=== PATIENT | male | born 1965 ===

== ENCOUNTER → 2022-11-15 12:48 | Outpatient (BNVA) | payer OTHER, SELFPAY | PROVIDERS: PCP Internal Medicine; Visit Provider Registered Nurse Emergency ==

== ENCOUNTER 2022-12-03 06:04 | Outpatient (REF) | payer OTHER, SELFPAY ==
--- NOTE | ~2022-12-03 | FL_ITS ---
EXAMINATION: XR FLUOROSCOPY WITH IMAGES CLINICAL INFORMATION: Sacrococcygeal disorders, not elsewhere classified COMPARISON: None available. TECHNIQUE: Fluoroscopy Supervised By: Dr. Arreola. Fluoroscopy Time: 0.4 minutes. Cumulative Dose: 8.01 mGy. DAP: Gycm2. Images: 2. FINDINGS: Images demonstrate needle placement and contrast injection of the bilateral sacroiliac joints. FL/FL guidance in treatment room IMPRESSION: Fluoroscopy guidance for sacroiliac joint injections
== END 2022-12-03 06:05 | disposition home or self-care (01) ==
LOC: CF 06:04
PROVIDERS: Visit Provider Anesthesiology
DX: M53.3 Sacrococcygeal disorders, not elsewhere classified (principal); M54.10 Radiculopathy, site unspecified; M47.816 Spondylosis without myelopathy or radiculopathy, lumbar region; M96.1 Postlaminectomy syndrome, not elsewhere classified; M54.50 Low back pain, unspecified
CPT/HCPCS: 27096; J3301

== ENCOUNTER 2023-01-07 10:24 | Outpatient (AMB) | payer OTHER, SELFPAY ==
[2023-01-07 10:35] VITALS: BP 134/64; PULSE 86; RESP 18; O2SAT 98; BMI 31.9
--- NOTE | 2023-01-07 10:35 | MHC.OFFVIS ---
Intake Vital Signs 01/07/23 10:35 Height 5 ft 9 in Weight 216 lb 6 oz BMI 31.9 BP 134/64 Blood Pressure Location Lt brachial Position Sitting Respiration 18 Pulse 86 Pulse Source Pulse Oximeter Pulse Oximetry (%) 98 Oxygen Delivery Method Room Air Intake Visit Reasons: BILAT SIJ STEROID INJ 12/03/22 Allergies diclofenac Adverse Reaction (Intermediate, Verified 01/07/23 10:36) Rash Penicillins Adverse Reaction (Intermediate, Verified 01/07/23 10:36) rash almonds Adverse Reaction (Severe, Uncoded 11/15/22 12:56) Anaphylaxis HPI HPI Comments History of Present Illness Details Hussein presents back to the office today for follow up s/p bilateral therapeutic SI joint injections on 12/03/2022. Patient reports 60% sustained pain improvement after the procedure with most significant pain relief noticed on day 3. He endorses improvement in mobility, activities of daily living and overall functioning. Has been able to bend without worrying about pain in his lower back and he has been helping his son with home projects. Patient denies any untoward effects of the procedure, he would like to repeat this in the future. Prior: Hussein is a pleasant 57-year-old male presents the office for a new patient visit on referral from his primary care doctor for evaluation and management of his chronic lower back pain. Patient reports he has been experiencing pain in his lower back since approximately 2017. The pain today as a 6/10 put at its worst will be a 10/10. He describes his pain as aching and stabbing with radiation into left thigh. He does report shooting pain lateral left leg below level of manzanares if he takes long car rides without stopping to stretch. The pain is worse with movement, long rides in the car, lifting heavy objects and climbing stairs. Pain is improved with heat, cold, topical meds and oral meds. Patient has tried NSAIDs, physical therapy, home exercise program, steroid injections and opiate pain medication. The patient reports he has completed 8 weeks of physical therapy that finished in July 2022, he continues to do home exercise program as recommended on discharge from physical therapy. Patient had a recent MRI, was told by Neurosurgery that he is not a candidate for surgical intervention at this time. Patient reports history of #4 steroid injections in the past, the 1st was very helpful but each one after were less beneficial. He states that he did not receive any benefit from the 4th one. Patient also reports that he suffers from muscle spasm across his lower back that he is prescribed muscle relaxers to take as needed. He did not tolerate previous muscle relaxers and most recently was prescribed baclofen which he has yet to try. He states if he lifts anything heavy the muscle spasms will become debilitating and can last for up to 3 days significantly limiting his ability to perform activities of daily living. Patient reports his lower back pain is also impacting his ability to sleep normally had impeding his ability to function normally. In terms of muscle damage patient's condition is described as stabbing, tugging, pulling, wrenching, dull, sore, aching, heavy, spreading, radiating, piercing, tight, squeezing and tearing. MRI was reviewed with the patient today, results as below. Patient denies implantable devices, pacemaker or defibrillator. Patient's past medical history significant for high blood pressure, hyperlipidemia, gout and a ACDF. The patient denies tobacco or recreational drug use. Patient admits to social alcohol use, beer. Review of Systems Const All systems reviewed & are unremarkable except as noted in HPI and below Physical Exam Vital Signs: Last Vital Signs Pulse 86 01/07/23 10:35 Resp 18 01/07/23 10:35 BP 134/64 01/07/23 10:35 Pulse Ox 98 01/07/23 10:35 Oxygen Delivery Method Room Air 01/07/23 10:35 BMI result Body Mass Index 31.9 General: awake, alert, oriented. Answers questions appropriately. Fully engaged in examination. Skin: warm, dry, intact without visible rashes or lesions. HEENT: Normocephalic. Conjuntivae clear without exudate. Sclera non-icteric. Hearing intact. Cardiac: External chest normal in appearance. Respiratory: No signs of trauma. No signs of respiratory distress. No cough, audible wheezing or stridor. Abdomen: without gross distension. MS: No obvious swelling or deformities. Able to transition from sit to stand unassisted. Ambulates with bilaterally normal heel strike and toe off Neurological: Oriented to person, place, time and situation. Thought process intact. No gait abnormalities appreciated. Psychiatric: Appropriate mood and affect. Good judgment and insight. Assessment & Plan Assessment & Plan (1) Radiculopathy: Code(s): M54.10 - Radiculopathy, site unspecified (2) Lumbar spondylosis: Code(s): M47.816 - Spondylosis without myelopathy or radiculopathy, lumbar region (3) Post laminectomy syndrome: Code(s): M96.1 - Postlaminectomy syndrome, not elsewhere classified (4) Myofascial low back pain: Code(s): M54.50 - Low back pain, unspecified Plan Hussein is a pleasant 57-year-old male who presented back to the office today for follow up s/p bilateral therapeutic SI joint injections. Patient with 60% pain relief with improvement in mobility and functioning. Patient will continue HEP and follow up in the office as needed for repeat Therapeutic SI joint injections. All questions and concerns have been answered and patient agrees with the plan. Follow up as needed. Coding Level of Care Code Est Pt Level 3 (35317) Diagnoses Radiculopathy M54.10 Lumbar spondylosis M47.816 Post laminectomy syndrome M96.1 Myofascial low back pain M54.50
== END 2023-01-07 10:44 | disposition home or self-care (01) ==
PROVIDERS: PCP Internal Medicine; Visit Provider Registered Nurse Emergency
DX: M54.10 Radiculopathy, site unspecified (principal); M47.816 Spondylosis without myelopathy or radiculopathy, lumbar region; M96.1 Postlaminectomy syndrome, not elsewhere classified; M54.50 Low back pain, unspecified
CPT/HCPCS: 99213

== ENCOUNTER → 2023-01-07 10:24 | Outpatient (BNVA) | payer OTHER, SELFPAY | PROVIDERS: PCP Internal Medicine; Visit Provider Registered Nurse Emergency ==

== ENCOUNTER 2023-03-11 06:00 | Outpatient (REF) | payer OTHER, SELFPAY ==
--- NOTE | ~2023-03-11 | FL_ITS ---
EXAMINATION: XR FLUOROSCOPY WITH IMAGES CLINICAL INFORMATION: Sacrococcygeal disorders, not elsewhere classified. Bilateral sacroiliac joints. COMPARISON: None available. TECHNIQUE: Fluoroscopy Supervised By: Dr. Connor Arreola. Fluoroscopy Time: 0.2 minutes. Cumulative Dose: 2.34 mGy. DAP: 0.0407 Gycm2. Images: 2. FINDINGS: Images demonstrate needle placement and contrast injection over the bilateral sacroiliac joints FL/FL guidance in treatment room IMPRESSION: Fluoroscopy guidance for pain management procedure
== END 2023-03-11 06:01 | disposition home or self-care (01) ==
LOC: CF 06:00
PROVIDERS: Visit Provider Anesthesiology
DX: M53.3 Sacrococcygeal disorders, not elsewhere classified (principal); M54.10 Radiculopathy, site unspecified; M47.816 Spondylosis without myelopathy or radiculopathy, lumbar region; M54.50 Low back pain, unspecified
CPT/HCPCS: 27096; J3301

== ENCOUNTER 2023-03-11 08:49 | Outpatient (AMB) | payer OTHER, SELFPAY ==
--- NOTE | 2023-03-11 09:01 | A.OFFVIS_ITS ---
Intake Vital Signs 03/11/23 09:02 03/11/23 10:06 Height 5 ft 9 in 5 ft 9 in Weight 216 lb 216 lb BMI 31.9 31.9 BP 128/64 138/72 Blood Pressure Location Lt brachial Lt brachial Position Sitting Sitting Respiration 18 18 Pulse 85 86 Pulse Source Pulse Oximeter Pulse Oximeter Pulse Oximetry (%) 98 99 Oxygen Delivery Method Room Air Room Air Comment pre-op post-op Intake Visit Reasons: BILAT SIJ STEROID INJ/*ATIVAN/LOCAL Allergies diclofenac Adverse Reaction (Intermediate, Verified 03/11/23 10:07) Rash Penicillins Adverse Reaction (Intermediate, Verified 03/11/23 10:07) rash almonds Adverse Reaction (Severe, Uncoded 11/15/22 12:56) Anaphylaxis Physical Exam Vital Signs: Last Vital Signs Pulse 86 03/11/23 10:06 Resp 18 03/11/23 10:06 BP 138/72 03/11/23 10:06 Pulse Ox 99 03/11/23 10:06 Oxygen Delivery Method Room Air 03/11/23 10:06 BMI result Body Mass Index 31.9 Assessment & Plan Assessment & Plan (1) Radiculopathy: Code(s): M54.10 - Radiculopathy, site unspecified (2) Lumbar spondylosis: Code(s): M47.816 - Spondylosis without myelopathy or radiculopathy, lumbar region (3) Post laminectomy syndrome: Code(s): M96.1 - Postlaminectomy syndrome, not elsewhere classified (4) Myofascial low back pain: Code(s): M54.50 - Low back pain, unspecified (5) Sacroiliac joint dysfunction of both sides: Code(s): M53.3 - Sacrococcygeal disorders, not elsewhere classified Plan: Bilateral therapeutic sacroiliac joint injection Informed consent was explained thoroughly to the patient. All questions about benefits and risks for the procedure were answered. Patient came to the operating room and was positioned prone on the operating table with the pillow under the pelvis.[employer] monit ors were applied and patient was deeply sedated. The lower back and buttocks of the patient were prepped with ChloraPrep prepped and draped with sterile utility towels. Sterilely draped C-arm was brought over the operating field and sq picture of patient's pelvis was demonstrated on the screen. For the both joint tilting C-arm contralateral to the site of the joint the most posterior portion of the joints was superimposed with anterior silhouette of the joint. Skin was injected in the projection of the joint slightly medial to the location of the joint with 25 gauge 1/2 inch needle using local lidocaine 2% .After that 22 gauge 3 and 1/2 inch needle was driven to the right joint in tunnel vision fashion. When needle entered the joint capsule injection of the contrast was performed demonstrating intra-articular and minimally periarticular spread of the contrast. After that 4 cc. of ropivacaine 0.5% mixed with kenalog 20 mg was injected into the each joint. The needles were removed and bandaids were applied. Cesar Savage is a pleasant 57-year-old male who presents to the office today for evaluation and management of his chronic lower back pain. Patient has been suffering with this pain for approximately 5 years and has exhausted conservative treatment. Patient's history and physical exam today most consistent with sacroiliac joint dysfunction. Patient with significant tenderness to palpation over PSIS that he reports is consistent with his typical pain, provocative testing also positive for sacroiliac joint dysfunction. Will schedule patient for fluoroscopy guided bilateral therapeutic sacroiliac joint injections with local anesthetic. Advised patient if he receives adequate pain relief and this is something that could be repeated. Also discussed with patient the option for SI joint fusion later if necessary. If patient does not receive substantial pain relief with SI joint injections will plan for L3, L4, MB L5 diagnostic medial branch blocks. Discussed options for treatment including diagnostic interventional testing, epidural steroid injections, peripheral nerve stimulation with Sprint, RFA and more permanent neuromodulation. Informational pamphlets provided. Patient's most recent epidural steroid injections were unsuccessful at providing significant pain relief, consider Sprint PNS vs RFA. Prescription for Zynex Tens unit provided. Patient provided information for Zynex. Patient will continue HEP. All questions and concerns have been answered and patient agrees with the plan. Follow up after injections and sooner if needed. Orders: Orders FL guidance in treatment room Today M53.3 - Sacrococcygeal disorders, not elsewhere classified Coding Level of Care Code Procedure Only Diagnoses Radiculopathy M54.10 Lumbar spondylosis M47.816 Post laminectomy syndrome M96.1 Myofascial low back pain M54.50 Sacroiliac joint dysfunction of both sides M53.3
[2023-03-11 09:02] VITALS: BP 128/64; PULSE 85; RESP 18; O2SAT 98; BMI 31.9
[2023-03-11 10:06] VITALS: BP 138/72; PULSE 86; RESP 18; O2SAT 99; BMI 31.9
== END 2023-03-11 09:58 | disposition home or self-care (01) ==
LOC: HO.PMCPRC 08:49
PROVIDERS: PCP Internal Medicine; Visit Provider Anesthesiology
DX: M53.3 Sacrococcygeal disorders, not elsewhere classified (principal)
CPT/HCPCS: 27096

== ENCOUNTER 2023-04-17 13:55 | Outpatient (AMB) | payer OTHER, SELFPAY ==
[2023-04-17 14:06] VITALS: BP 144/77; PULSE 90; RESP 16; O2SAT 98; BMI 32.2
--- NOTE | 2023-04-17 14:06 | A.OFFVIS_ITS ---
Intake Vital Signs 3 04/17/23 14:06 Height 5 ft 9 in Weight 218 lb BMI 32.2 BP 144/77 H Blood Pressure Location Lt brachial Position Sitting Respiration 16 Pulse 90 Pulse Source Pulse Oximeter Pulse Oximetry (%) 98 Oxygen Delivery Method Room Air Intake Visit Reasons: BILAT SIJ STEROID INJ/ 03/11/23 / CONFIRMED Allergies diclofenac Adverse Reaction (Intermediate, Verified 04/17/23 14:07) Rash Penicillins Adverse Reaction (Intermediate, Verified 04/17/23 14:07) rash almonds Adverse Reaction (Severe, Uncoded 11/15/22 12:56) Anaphylaxis HPI HPI Comments 2 History of Present Illness0 Details Hussein presents back to the office today for follow up s/p bilateral therapeutic SI joint injections on 03/11/23. Patient reports 80% sustained pain improvement after the procedure. He endorses improvement in mobility, activities of daily living and overall functioning. Since the procedure patient flew with his son to [place] and was able to walk around and do a lot of sightseeing. He only felt a slight pain increase to midline lumbar area but pain in SIJ did not return. He still reports mild midline lumbar pain, he received injections in the past with decrease effectiveness over time. He completed PT months ago, completed 8 weeks and continues with HEP. Prior: Hussein is a pleasant 57-year-old male presents the office for a new patient visit on referral from his primary care doctor for evaluation and management of his chronic lower back pain. Patient reports he has been experiencing pain in his lower back since approximately 2017. The pain today as a 6/10 put at its worst will be a 10/10. He describes his pain as aching and stabbing with radiation into left thigh. He does report shooting pain lateral left leg below level of manzanares if he takes long car rides without stopping to stretch. The pain is worse with movement, long rides in the car, lifting heavy objects and climbing stairs. Pain is improved with heat, cold, topical meds and oral meds. Patient has tried NSAIDs, physical therapy, home exercise program, steroid injections and opiate pain medication. The patient reports he has completed 8 weeks of physical therapy that finished in July 2022, he continues to do home exercise program as recommended on discharge from physical therapy. Patient had a recent MRI, was told by Neurosurgery that he is not a candidate for surgical intervention at this time. Patient reports history of #4 steroid injections in the past, the 1st was very helpful but each one after were less beneficial. He states that he did not receive any benefit from the 4th one. Patient also reports that he suffers from muscle spasm across his lower back that he is prescribed muscle relaxers to take as needed. He did not tolerate previous muscle relaxers and most recently was prescribed baclofen which he has yet to try. He states if he lifts anything heavy the muscle spasms will become debilitating and can last for up to 3 days significantly limiting his ability to perform activities of daily living. Patient reports his lower back pain is also impacting his ability to sleep normally had impeding his ability to function normally. In terms of muscle damage patient's condition is described as stabbing, tugging, pulling, wrenching, dull, sore, aching, heavy, spreading, radiating, piercing, tight, squeezing and tearing. MRI was reviewed with the patient today, results as below. Patient denies implantable devices, pacemaker or defibrillator. Patient's past medical history significant for high blood pressure, hyperlipidemia, gout and a ACDF. The patient denies tobacco or recreational drug use. Patient admits to social alcohol use, beer. Review of Systems Const All systems reviewed & are unremarkable except as noted in HPI and below Physical Exam Vital Signs: Last Vital Signs Pulse 90 04/17/23 14:06 Resp 16 04/17/23 14:06 BP 144/77 H 04/17/23 14:06 Pulse Ox 98 04/17/23 14:06 Oxygen Delivery Method Room Air 04/17/23 14:06 BMI result Body Mass Index 32.2 General: awake, alert, oriented. Answers questions appropriately. Fully engaged in examination. Skin: warm, dry, intact without visible rashes or lesions. HEENT: Normocephalic. Conjuntivae clear without exudate. Sclera non-icteric. Hearing intact. Cardiac: External chest normal in appearance. Respiratory: No signs of trauma. No signs of respiratory distress. No cough, audible wheezing or stridor. Abdomen: without gross distension. MS: No obvious swelling or deformities. Able to transition from sit to stand unassisted. Ambulates with bilaterally normal heel strike and toe off Neurological: Oriented to person, place, time and situation. Thought process intact. No gait abnormalities appreciated. Psychiatric: Appropriate mood and affect. Good judgment and insight. Results Reviewed Results Reviewed: Assessment & Plan Assessment & Plan (1) Radiculopathy: Code(s): M54.10 - Radiculopathy, site unspecified (2) Lumbar spondylosis: Code(s): M47.816 - Spondylosis without myelopathy or radiculopathy, lumbar region (3) Post laminectomy syndrome: Code(s): M96.1 - Postlaminectomy syndrome, not elsewhere classified (4) Myofascial low back pain: Code(s): M54.50 - Low back pain, unspecified (5) Sacroiliac joint dysfunction of both sides: Code(s): M53.3 - Sacrococcygeal disorders, not elsewhere classified Plan Hussein is a pleasant 57-year-old male who presented back to the office today for follow up s/p bilateral therapeutic SI joint injections. Patient with 80% pain relief with improvement in mobility and functioning. Patient will continue HEP and follow up in the office as needed for repeat Therapeutic SI joint injections vs bilateral SIJ fusion. Discussed treatment for lumbar spondylosis. Pamphlets for Sprint PNS given to patient for review. Patient will call the office when he would like to schedule fluoroscopy guided diagnostic L3 L4 DR L5 MBBs with local anesthetic, if he receives improvement in pain, function and mobility will plan for L3 MB Sprint PNS. All questions and concerns have been answered and patient agrees with the plan. Follow up as needed. Coding Level of Care Code Est Pt Level 3 (78977) Diagnoses Radiculopathy M54.10 Lumbar spondylosis M47.816 Post laminectomy syndrome M96.1 Myofascial low back pain M54.50 Sacroiliac joint dysfunction of both sides M53.3
== END 2023-04-17 14:28 | disposition home or self-care (01) ==
PROVIDERS: PCP Internal Medicine; Visit Provider Registered Nurse Emergency
DX: M54.10 Radiculopathy, site unspecified (principal); M47.816 Spondylosis without myelopathy or radiculopathy, lumbar region; M96.1 Postlaminectomy syndrome, not elsewhere classified; M54.50 Low back pain, unspecified; M53.3 Sacrococcygeal disorders, not elsewhere classified
CPT/HCPCS: 99213

== ENCOUNTER → 2023-04-17 13:55 | Outpatient (BNVA) | payer OTHER, SELFPAY | PROVIDERS: PCP Internal Medicine; Visit Provider Registered Nurse Emergency ==

== ENCOUNTER 2024-03-25 09:00 | Outpatient (AMB) | payer OTHER, SELFPAY ==
[2024-03-25 09:06] VITALS: BP 148/67; PULSE 78; O2SAT 99; BMI 30.6
--- NOTE | 2024-03-25 09:06 | MHC.OFFVIS ---
Vital Signs 03/25/24 09:06 Height 5 ft 9 in Weight 207 lb BMI 30.6 BP 148/67 H Blood Pressure Location Rt brachial Position Sitting Pulse 78 Pulse Source Pulse Oximeter Pulse Oximetry (%) 99 Oxygen Delivery Method Room Air Intake Visit Reasons: Follow Up/Discuss Injections Allergies baclofen Allergy (Unknown, Verified 03/25/24 09:09) Unknown diclofenac Adverse Reaction (Intermediate, Verified 03/25/24 09:07) Rash Penicillins Adverse Reaction (Intermediate, Verified 03/25/24 09:07) rash almonds Adverse Reaction (Severe, Uncoded 03/25/24 09:07) Anaphylaxis Medication List - Last Reconciled 03/25/24 by Janette Leavitt allopurinol 300 mg PO DAILY amlodipine 5 mg PO DAILY atorvastatin 40 mg PO DAILY lisinopril 20 mg PO DAILY lorazepam 0.5 mg PO DAILY PRN sildenafil 100 mg PO DAILY PRN HPI Comments Details: Patient presents back to the office today for follow up lower back pain reports pain relief after bilateral SIJ injections performed 02/2023 Pain returned 2 weeks ago, he would like repeat injections pain worse with sitting and climbing stairs Pain today rated as 7/10 Has been taking tylenol and motrin with minimal improvement. Using heat with temporary relief. Prior: Hussein presents back to the office today for follow up s/p bilateral therapeutic SI joint injections on 03/11/23. Patient reports 80% sustained pain improvement after the procedure. He endorses improvement in mobility, activities of daily living and overall functioning. Since the procedure patient flew with his son to [place] and was able to walk around and do a lot of sightseeing. He only felt a slight pain increase to midline lumbar area but pain in SIJ did not return. He still reports mild midline lumbar pain, he received injections in the past with decrease effectiveness over time. He completed PT months ago, completed 8 weeks and continues with HEP. Prior: Hussein is a pleasant 57-year-old male presents the office for a new patient visit on referral from his primary care doctor for evaluation and management of his chronic lower back pain. Patient reports he has been experiencing pain in his lower back since approximately 2018. The pain today as a 6/10 put at its worst will be a 10/10. He describes his pain as aching and stabbing with radiation into left thigh. He does report shooting pain lateral left leg below level of manzanares if he takes long car rides without stopping to stretch. The pain is worse with movement, long rides in the car, lifting heavy objects and climbing stairs. Pain is improved with heat, cold, topical meds and oral meds. Patient has tried NSAIDs, physical therapy, home exercise program, steroid injections and opiate pain medication. The patient reports he has completed 8 weeks of physical therapy that finished in July 2022, he continues to do home exercise program as recommended on discharge from physical therapy. Patient had a recent MRI, was told by Neurosurgery that he is not a candidate for surgical intervention at this time. Patient reports history of #4 steroid injections in the past, the 1st was very helpful but each one after were less beneficial. He states that he did not receive any benefit from the 4th one. Patient also reports that he suffers from muscle spasm across his lower back that he is prescribed muscle relaxers to take as needed. He did not tolerate previous muscle relaxers and most recently was prescribed baclofen which he has yet to try. He states if he lifts anything heavy the muscle spasms will become debilitating and can last for up to 3 days significantly limiting his ability to perform activities of daily living. Patient reports his lower back pain is also impacting his ability to sleep normally had impeding his ability to function normally. In terms of muscle damage patient's condition is described as stabbing, tugging, pulling, wrenching, dull, sore, aching, heavy, spreading, radiating, piercing, tight, squeezing and tearing. MRI was reviewed with the patient today, results as below. Patient denies implantable devices, pacemaker or defibrillator. Patient's past medical history significant for high blood pressure, hyperlipidemia, gout and a ACDF. The patient denies tobacco or recreational drug use. Patient admits to social alcohol use, beer. Review of Systems Const All systems reviewed & are unremarkable except as noted in HPI and below Physical Exam Vital Signs: Last Vital Signs Pulse 78 03/25/24 09:06 BP 148/67 H 03/25/24 09:06 Pulse Ox 99 03/25/24 09:06 Oxygen Delivery Method Room Air 03/25/24 09:06 BMI result Body Mass Index 30.6 General: awake, alert, oriented. Answers questions appropriately. Fully engaged in examination. Skin: warm, dry, intact HEENT: Normocephalic. Hearing intact. Cardiac: External chest normal in appearance. Respiratory: No cough, audible wheezing or stridor. Abdomen: without gross distension. MS: No obvious swelling or deformities. Able to stand on bilateral tiptoes and bilateral heels.? Able to transition from sit to stand unassisted. Ambulates with bilaterally normal heel strike and toe off Strength: 5/5 BLE Tender to palpation over bilateral PSIS SI compression positive bilaterally Gaenslen test is positive bilaterally Thigh thrust positive bilaterally SLR is negative bilaterally. Neurological: Oriented to person, place, time and situation. Thought process intact. No gait abnormalities appreciated. Psychiatric: Appropriate mood and affect. Good judgment and insight. Results Reviewed Results Reviewed: Assessment & Plan Assessment & Plan (1) Radiculopathy: Code(s): M54.10 - Radiculopathy, site unspecified Category: Medical (2) Lumbar spondylosis: Code(s): M47.816 - Spondylosis without myelopathy or radiculopathy, lumbar region Category: Medical (3) Post laminectomy syndrome: Code(s): M96.1 - Postlaminectomy syndrome, not elsewhere classified Category: Medical (4) Myofascial low back pain: Code(s): M54.50 - Low back pain, unspecified Category: Medical (5) Sacroiliac joint dysfunction of both sides: Code(s): M53.3 - Sacrococcygeal disorders, not elsewhere classified Category: Medical Plan Hussein presented back to the office today for follow up bilateral SIJ dysfunction. Reports one year of pain relief after bilateral therapeutic SIJ injections. Would like to repeat. Will schedule for fluoroscopy guided bilateral therapeutic sacroiliac joint injections with local anesthetic All questions and concerns have been answered and patient agrees with the plan. Follow up as needed. Coding Level of Care Code New Pt Level 4 (31872) Complex EM visit Add On G2211 Diagnoses Radiculopathy M54.10 Lumbar spondylosis M47.816 Post laminectomy syndrome M96.1 Myofascial low back pain M54.50 Sacroiliac joint dysfunction of both sides M53.3
== END 2024-03-25 09:12 | disposition home or self-care (01) ==
PROVIDERS: PCP Internal Medicine; Visit Provider Registered Nurse Emergency
DX: M54.10 Radiculopathy, site unspecified (principal); M47.816 Spondylosis without myelopathy or radiculopathy, lumbar region; M96.1 Postlaminectomy syndrome, not elsewhere classified; M54.50 Low back pain, unspecified; M53.3 Sacrococcygeal disorders, not elsewhere classified
CPT/HCPCS: 99214

== ENCOUNTER → 2024-03-25 09:00 | Outpatient (BNVA) | payer OTHER, SELFPAY | PROVIDERS: PCP Internal Medicine; Visit Provider Registered Nurse Emergency ==

== ENCOUNTER 2024-09-14 06:12 | Outpatient (REF) | payer OTHER, SELFPAY ==
--- NOTE | ~2024-09-14 | FL_ITS ---
EXAMINATION: FL GUIDANCE ONLY HISTORY: M53.3 - Sacrococcygeal disorders, not elsewhere classified COMPARISON: None available. TECHNIQUE: Fluoroscopy time: 0.2 minutes. Cumulative Dose: 2.55 mGy. DAP: 0.0337 mGym2 Images: 2. FINDINGS: Images demonstrate needles and contrast material in the regions of the bilateral sacroiliac joints. FL/FL guidance in treatment room IMPRESSION: Fluoroscopy during procedure. Please see procedure report for additional information. Electronically signed by: Neo Walker MD 09/14/2024 11:33 AM EDT
--- OUTSIDE RECORDS SUMMARY | 2024-09-14 06:16 | XMS_ITS | Data Portability ---
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 On exam ,he has pain on flexion. Straight leg raising test is positive on the left. MRI Lumbar spine shows Left L5-S1 paracentral disc protrusion compromising the left S1 traversing nerve root . He is here for a follow up after a trial of Lumbar epidural steroid injections under fluoroscopic guidance . He reports 50 % Pain benefit which is ongoing. He is complaining of left hip pain. He can call for a follow up appointment if pain worsens. [email or web address] Not available 07/14/2019 14:32:49 04/10/2020 04/10/2020 Hussein Hartley is a 53 year old man with low back pain radiating into left lower extremity with numbness . On exam ,he has pain on flexion. Straight leg raising test is positive on the left. MRI Lumbar spine shows Left L5-S1 paracentral disc protrusion compromising the left S1 traversing nerve root . Repeat Lumbar epidural steroid injections under fluoroscopic guidance was recommended. The risks and benefits of the procedure were discussed in detail. He wishes to proceed. An appointment has been booked for the same. 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 [email or web address] Not available 04/11/2020 08:25:24 05/03/2020 05/03/2020 Hussein Hartley is a 54 year old man with low back pain radiating into left lower extremity with numbness . On exam ,he has pain on flexion. Straight leg raising test is positive on the left. MRI Lumbar spine shows Left L5-S1 paracentral disc protrusion compromising the left S1 traversing nerve root . He is here for a Lumbar epidural steroid injections under fluoroscopic guidance . The risks and benefits of the procedure were discussed in detail. He wishes to proceed. He will follow up in eight weeks. [email or web address] Not available 05/03/2020 09:59:33 04/11/2021 04/11/2021 Hussein Hartley is a 53 year old man with low back pain radiating into right lower extremity with numbness . On exam ,he has pain on flexion. Straight leg raising test is positive on the right. He is getting a new MRI Lumbar spine . Trial of Lumbar epidural steroid injection under fluoroscopic guidance was recommended. The risks and benefits of the procedure were discussed in detail. He wishes to proceed. An appointment has been booked for the same. 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 [email or web address] Not available 04/13/2021 09:27:11 07/25/2021 07/25/2021 Hussein Hartley is a 56 year old man with low back pain radiating into left lower extremity with numbness . On exam ,he has pain on flexion. Straight leg raising test is positive on the left. MRI Lumbar spine shows Left L5-S1 paracentral disc protrusion compromising the left S1 traversing nerve root . He is here for a Lumbar epidural steroid injections under fluoroscopic guidance . The risks and benefits of the procedure were discussed in detail. He wishes to proceed. He is having increasing pain with numbness and weakness. He needs an updated MRI for a neurosurgical consultation . He will follow up after his MRI Lumbar spine. [email or web address] Not available 07/25/2021 11:53:59 Plan of Treatment Reminders Order Date Submit Date Provider Last Modified By Organization Details Last Modified Time Details Appointments None record ed. Lab None record ed. Referral None record ed. Procedures None record ed. Surgeries None record ed. Imaging None record ed. Medication Orders None record ed. Patient TargetsNo targets recorded. Patient Instructions Encounter Date Encounter Id Patient Instructions Last Modified By Organization Details Last Modified Time 07/14/2019 [id number] He was advised against bed rest lasting longer than four days and to continue activities as tolerated. [email or web address] Not available 07/14/2019 14:31:38 04/10/2020 [id number] Telehealth visit: The patient was located at home for this telephone electronic visit and gave consent for this visit to be conducted via telehealth. 15 minutes was spent on this call and greater than 50% of the visit was spent on counseling and coordination of care. [email or web address] Not available 04/10/2020 16:06:33 05/03/2020 [id number] He was advised against bed rest lasting longer than four days and to continue activities as tolerated. [email or web address] Not available 05/03/2020 09:55:23 04/11/2021 [id number] He was advised against bed rest lasting longer than four days and to continue activities as tolerated. [email or web address] Not available 04/13/2021 09:26:05 07/25/2021 [id number] He was advised against bed rest lasting longer than four days and to continue activities as tolerated. [email or web address] Not available 07/25/2021 11:49:46 Reason for Referral None Reported. Problems Name Problem SNOMED Code Status Onset Date Resolution Date Notes Provider Name and Address Organization Details Recorded Time Lumbosacral radiculopathy 5364531 Active Ingrid green MD [facility] [address], [place], [address], [place] [facility] 9 10:08:21 Degeneration of lumbar intervertebral disc 10173885 Active Ingrid green MD [facility] , [facility] [address], [place], [address], [place] [facility] 9 10:08:30 Spinal stenosis of lumbar region 72143801 Active Ingrid green MD [facility] [address] [facility] , [address], [place], [address], [place] [facility] 9 10:08:41 Problem Notes None recorded. Procedures Surgical History Date Name Laterality Status Provider Name and Address Organization Details Recorded Time 07/25/19 22 Lumbar Epidural steroid injection under fluoroscopic guidance completed Ingrid Worrell MD [facility] [address] [facility] , [facility] [address], [place], [address], [place] [facility] 07/25/2021 11:52:30 05/03/20 20 Lumbar Epidural steroid injection under fluoroscopic guidance completed Ingrid Worrell MD [address] [place] [address] [facility] , [address], [place], [address], [place] [facility] 05/03/2020 09:56:11 06/01/20 19 Lumbar Epidural steroid injection under fluoroscopic guidance completed Ingrid Worrell MD [address] [facility] , [address], [place], [address], [place] [facility] 06/01/2019 16:11:53 cervical arthrodesis by anterior technique completed Ingrid Worrell MD [address] [facility] , [address], [place], [address], [place] [facility] 04/13/2021 09:18:10 Tonsillectomy completed Ingrid Worrell MD [address] [facility] , [address], [place], [address], [place] [facility] 04/13/2021 09:18:19 Imaging Results None recorded. Procedure Notes None recorded. Medical Equipment None Reported. Allergies Allergen ID Allergen Name Allergen Category Reaction Reaction Severity Criticality Documentation Date Start Date Code Code System Note Provider Name and Address Organization Details Recorded Time penicilli n G Not available Not available Not available Not available 05/26/2019 7980 RxNorm Jacolyn O'Ridge n null, [place] - [facility] 9 13:30:02 48595 almond allergeni c extract food Not available Not available Not available 05/03/2020 73818 7 RxNorm Jacolyn O'Sulliva n null, [place] - [facility] 0 09:03:13 Medications Name Sig Start Date Stop Date Status Note LastModified by Organization Details LastModified Time cyclobenzap rine 10 mg tablet TAKE 1 TABLET BY MOUTH DAILY FOR 2 WEEKS NEEDED FOR SPASM active Not Available Not Available No t Available atorvastati n 40 mg tablet TAKE 1 TABLET BY MOUTH DAILY active Not Available Not Available No t Available methocarbam ol 500 mg tablet TAKE 1 TABLET BY MOUTH THREE TIMES DAILY NEEDED FOR MUSCLE SPASM 04/11 completed Not Available Not Available Not Available prednisone 10 mg tablet 04/11 completed Not Available Not Available Not Available atorvastati n 20 mg tablet 06/01 completed Not Available Not Available Not Available tizanidine 4 mg tablet TAKE 1 TABLET BY MOUTH FOUR TIMES DAILY 04/11 completed Not Available Not Available Not Available hydrocodone 5 mg-acetamin ophen 325 mg tablet TAKE 1 TABLET BY MOUTH FOUR TIMES DAILY FOR 7 DAYS NEEDED FOR SEVERE PAIN 04/11 completed Not Available Not Available Not Available lisinopril 20 mg tablet TAKE 1 TABLET BY MOUTH DAILY active Not Available Not Available No t Available prednisone 20 mg tablet 04/10 completed Not Available Not Available Not Available amlodipine 5 mg tablet TAKE 1 TABLET BY MOUTH DAILY active Not Available Not Available No t Available tramadol 50 mg tablet TAKE 1 TO 2 TABLETS BY MOUTH THREE TIMES DAILY NEEDED FOR PAIN. MAY FILL FEWER 04/11 completed Not Available Not Available Not Available sildenafil 100 mg tablet TAKE 1 TABLET BY MOUTH DAILY FOR 1 HOUR BEFORE SEXUAL ACTIVITY active Not Available Not Available No t Available lorazepam 0.5 mg tablet TAKE 1 TABLET BY MOUTH 1 TIME TAKE 30 TO 60 MINUTES BEFORE PUBLIC SPEAKING. MAY REPEAT DOSE 1 TIME IN 30 MINUTES NEEDED active Not Available Not Available No t Available gabapentin 300 mg capsule TAKE 1 CAPSULE AT BEDTIME FOR 3 DAYS. THEN 1 CAPSULE TWICE DAILY FOR 3 DAYS. THEN TAKE 1 CAPSULE THREE TIMES DAILY 07/25 completed Not Available Not Available Not Available omeprazole 20 mg capsule,del ayed release 05/26 completed Not Available Not Available Not Available diclofenac sodium 75 mg tablet,kleber yed release 04/11 completed Not Available Not Available Not Available allopurinol 300 mg tablet TAKE 1 TABLET BY MOUTH DAILY active Not Available Not Available No t Available methylpredn isolone 4 mg tablets in a dose pack TAKE 6 TABLETS ONCE FOR 1 DAY THEN DECREASE DOSE BY 1 TABLET EACH DAY DIRECTED ON PACK 04/11 completed Not Available Not Available Not Available piroxicam 20 mg capsule 05/26 completed Not Available Not Available Not Available diazepam 5 mg tablet 05/26 completed Not Available Not Available Not Available cyclobenzap rine 5 mg tablet TAKE 1 TABLET BY MOUTH EVERY 8 HOURS IF NEEDED FOR MUSCLE SPASM active Not Available Not Available No t Available Vitals Date Recorded Body height Heart rate Oxygen saturation Oxygen saturation in Arterial blood by Pulse oximetry Pain severity - 0-10 verbal numeric rating [Score] - Reported Body mass index (BMI) Body weight Systolic blood pressure Diastolic blood pressure Provider Name and Address Organization Details Last Updated DateTime 0 177.8 cm 84 /min 98 % 98 % 2 31.9 kg/m2 417974. 51 g 146 mm[Hg] 77 mm[Hg] Ingrid green MD [address] [facility] , [address], [place], [address], [place] [facility] 0 14:12:16 Date Recorded Body height Heart rate Oxygen saturation Oxygen saturation in Arterial blood by Pulse oximetry Pain severity - 0-10 verbal numeric rating [Score] - Reported Systolic blood pressure Diastolic blood pressure Provider Name and Address Organization Details Last Updated DateTime 0 177.8 cm 109 /min 98 % 98 % 4 149 mm[Hg] 85 mm[Hg] Jaimie green [place] - [facility] 0 09:02:11 Date Recorded Body height Heart rate Oxygen saturation Oxygen saturation in Arterial blood by Pulse oximetry Pain severity - 0-10 verbal numeric rating [Score] - Reported Systolic blood pressure Diastolic blood pressure Provider Name and Address Organization Details Last Updated DateTime 1 177.8 cm 101 /min 98 % 98 % 8 131 mm[Hg] 61 mm[Hg] Ingrid green MD [address] [facility] , [address], [place], [address], [place] [facility] 1 13:59:03 Date Recorded Body height Heart rate Oxygen saturation Oxygen saturation in Arterial blood by Pulse oximetry Systolic blood pressure Diastolic blood pressure Provider Name and Address Organization Details Last Updated DateTime 2 177.8 cm 85 /min 98 % 98 % 158 mm[Hg] 75 mm[Hg] Keturah Harper [place] [facility] 2 11:04:06 Social History Question Answer Notes LastModified by Organizat ion Details LastModified Time Tobacco Smoking Status Never Smoker Jaimie cheney, [place] - [facility] 05/26/2019 13:33:51 What Is Your Level Of Alcohol Consumption? Moderate Information not available 05/26/2019 Are You Currently Employed? Yes Information not available 05/26/2019 Which Illicit Or Recreational Drugs Have You Used? No None Information not available 05/26/2019 Do You Or Have You Ever Used E-cigarettes Or Vape? Never Used Electronic Cigarettes Information not available 05/26/2019 Education 4 Year College Informati on not available 05/26/2019 Live Alone Or With Others? With Others Information not available 05/26/2019 Marital Status Informati on not available 05/26/2019 Sex: Unknown Functional Status None recorded. Mental Status None recorded. Family History Nothing Reported. Medical History Condition Response Coronary Artery Disease N Gout Y Neuropathy/Neuralgia N Kidney Stones N Hyperthyroidism N Depression N COPD N Anxiety Disorder N Arthritis Y Cancer N Stroke N HIV/AIDS N Headache N Fibromyalgia N Irritable Bowel Syndrome N Kidney Disease N Migrane N Asthma N GERD/Reflux Y Pulmonary Embolism N Hypothyroidism N High Cholesterol Y Liver Disease N Hepatitis C N Diabetes N Seizures/Epilepsy N Hyperlipidemia N Bipolar Disorder N Hypertension Y Osteoporosis N Past Encounters Encounter ID Performer Location Encounter Start Date Encounter Closed Date Diagnosis/Indication Diagnosis SNOMED-CT Code Diagnosis ICD10 Code Diagnosis Note [id number] Ingrid Worrell MD PAIN OFFICE [address] [place] [address] 05/26/2019 13:15:18 05/27/2019 10:38:30 Spinal stenosis of lumbar region 81755376 M48.061 Lumbosacra l radiculopathy 2022534 M54.17 Degenerati on of lumbar intervertebral disc 37315328 M51.36 [id number] Ingrid Worrell MD PAIN OFFICE [address] [place] [address] 06/01/2019 13:16:16 06/01/2019 16:13:45 Spinal stenosis of lumbar region 28520221 M48.061 Lumbosacra l radiculopathy 3108427 M54.17 Degenerati on of lumbar intervertebral disc 82206802 M51.36 [id number] Ingrid Worrell MD PAIN OFFICE [address] [place] [address] 07/14/2019 14:01:49 07/14/2019 14:33:25 Spinal stenosis of lumbar region 29650061 M48.061 Lumbosacra l radiculopathy 0595765 M54.17 Degenerati on of lumbar intervertebral disc 69355342 M51.36 [id number] Ingrid Worrell MD PAIN OFFICE [address] [facility] [place] [address] 04/10/2020 15:30:27 04/10/2020 16:07:04 Spinal stenosis of lumbar region 33160212 M48.061 Lumbosacra l radiculopathy 1806540 M54.17 Degenerati on of lumbar intervertebral disc 20987273 M51.36 [id number] Ingrid Worrell MD PAIN OFFICE [address] [facility] [place] [address] 05/03/2020 08:55:26 05/03/2020 10:56:59 Spinal stenosis of lumbar region 77141712 M48.061 Lumbosacra l radiculopathy 0722393 M54.17 Degenerati on of lumbar intervertebral disc 61264364 M51.36 [id number] Ingrid Worrell MD PAIN OFFICE [address] [facility] [place] [address] 04/11/2021 13:52:27 04/13/2021 09:28:02 Spinal stenosis of lumbar region 48237037 M48.061 Lumbosacra l radiculopathy 0867791 M54.17 Degenerati on of lumbar intervertebral disc 33841649 M51.36 [id number] Ingrid Worrell MD PAIN OFFICE [address] [facility] [place] [address] 07/25/2021 10:46:26 07/25/2021 15:58:22 Spinal stenosis of lumbar region 68105846 M48.061 Lumbosacra l radiculopathy 5888924 M54.17 Degenerati on of lumbar intervertebral disc 83919327 M51.36 Health Concerns Section Related Observation LastModified by Organization Detai ls LastModified Time None Recorded Concern Status LastModified by Organization Details LastModified Time None Recorded Advance Directives Directive None Recorded Payers Encounter Date Sequence Insurance Name Policy Number Policy Elizondo Covered Member ID Elizondo Member ID Guarantor Name 07/14/2019 1 [facility] [employer] H & W (O) [id number] Hussein Hartley [id number] 1 Hussein Hartley 04/10/2020 1 [employer]AL H & W (PPO) [id number] Hussein Hartley [id number] 1 Hussein Hartley 05/03/2020 1 [employer] & W (PPO) [id number] Hussein Hartley [id number] 1 Hussein Hartley 04/11/2021 1 [employer] W (PPO) [id number] Hussein Hartley [id number] 1 Hussein Hartley 07/25/2021 1 [employer] & W (PPO) [id number] Hussein Hartley [id number] 1 Hussein Hartley Notes Date Note Type Note Provider Name and Address Organization Details Recorded Time 07/14/2019 text/html He is here for a follow up after a lumbar epidural steroid injection under fluoroscopic guidance. He reports 50% pain relief which is ongoing. He is walking better and has been walking one mile a day or more. He is complaining of occasionally achiness in his low back . He has no history of bladder or bowel incontinence.He is complaining pain in left hip. X-ray shows moderate arthritis in left hip with trochanteric bursitis. Ingrid Worrell MD [address] [facility] , [place] [address], [place], [address], [facility] - Pain Management 07/14/2019 14:59:56 04/10/2020 text/html He was last seen for a Lumbar epidural steroid injection on 06/01/2019. He reports good pain relief until a month ago . 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 He has no history of bladder or bowel incontinence. He has been doing a home exercise program with persistent pain. Ingrid Worrell MD [address] , [address], [place], [address], [facility] - Pain Management 04/11/2020 08:25:37 05/03/2020 text/html He is here today for a lumbar epidural steroid injection under fluroscopic guidance. Ingrid Worrell MD [address] [facility] , [address], [place], [address], [facility] - Pain Management 05/03/2020 16:20:38 04/11/2021 text/html He is here for a follow up. He was last seen on 05/03/2020. He is S/P ACDF at C7-T1 level with Dr. Jesse Mckeon in January 2021. He states he still has numbness and is doing occupational therapy at present. He is complaining of low back pain radiating into right lower extremity . 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 He previously had low back pain radiating into left lower extremity. He has no history of bladder or bowel incontinence. Ingrid Worrell MD [address] [facility] , [address], [place], [address], [facility] - Pain Management 04/16/2021 08:50:58 07/25/2021 text/html He is here today for a lumbar epidural steroid injection under fluoroscopic guidance. He is having increasing pain and is radiating into right lower extremity with numbness and weakness. He wants to see neurosurgeon. He needs an updated MRI for neurosurgical consultation. Ingrid Worrell MD [address] , [address], [place], [address], [facility] - Pain Management 07/26/2021 09:04:10
== END 2024-09-14 06:13 | disposition home or self-care (01) ==
LOC: CF 06:12
PROVIDERS: Visit Provider Anesthesiology
DX: M53.3 Sacrococcygeal disorders, not elsewhere classified (principal); M96.1 Postlaminectomy syndrome, not elsewhere classified
CPT/HCPCS: 27096; J2003; J2795; J3301

== ENCOUNTER 2024-09-14 08:13 | Outpatient (AMB) | payer OTHER, SELFPAY ==
[2024-09-14 08:18] VITALS: BP 142/70; PULSE 91; RESP 16; O2SAT 99
--- NOTE | 2024-09-14 08:18 | A.OFFVIS_ITS ---
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: No Allergies baclofen Allergy (Unknown, Verified 09/14/24 08:18) Unknown diclofenac Adverse Reaction (Intermediate, Verified 09/14/24 08:18) Rash Penicillins Adverse Reaction (Intermediate, Verified 09/14/24 08:18) rash almonds Adverse Reaction (Severe, Uncoded 09/14/24 08:18) Anaphylaxis Medication List - Last Reconciled 09/14/24 by Catalina Bonilla LPN allopurinol 300 mg PO DAILY amlodipine 5 mg PO DAILY atorvastatin 40 mg PO DAILY lisinopril 20 mg PO DAILY lorazepam 0.5 mg PO DAILY PRN sildenafil 100 mg PO DAILY PRN Physical Exam Vital Signs: Last Vital Signs Pulse 74 09/14/24 09:32 Resp 16 09/14/24 09:32 BP 146/74 H 09/14/24 09:32 Pulse Ox 100 09/14/24 09:32 Oxygen Delivery Method Room Air 09/14/24 09:32 Assessment & Plan Assessment & Plan (1) Radiculopathy: Code(s): M54.10 - Radiculopathy, site unspecified Category: Medical (2) Lumbar spondylosis: Code(s): M47.816 - Spondylosis without myelopathy or radiculopathy, lumbar region Category: Medical (3) Post laminectomy syndrome: Code(s): M96.1 - Postlaminectomy syndrome, not elsewhere classified Category: Medical (4) Myofascial low back pain: Code(s): M54.50 - Low back pain, unspecified Category: Medical (5) Sacroiliac joint dysfunction of both sides: Code(s): M53.3 - Sacrococcygeal disorders, not elsewhere classified Category: Medical Plan: Bilateral therapeutic sacroiliac joint injection Informed consent was explained thoroughly to the patient. All questions about benefits and risks for the procedure were answered. Patient came to the operating room and was positioned prone on the operating table with the pillow under the abdomen. The lower back and buttocks of the patient were prepped with ChloraPrep prepped and draped with sterile utility towels. Sterilely draped C-arm was brought over the operating field and sq picture of patient's pelvis was demonstrated on the screen. For the both joints tilting C-arm contralateral to the site of the joint the most posterior portion of the joints was superimposed with anterior silhouette of the joint. Skin was injected in the projection of the joint slightly medial to the location of the joint with 25 gauge 1/2 inch needle using local lidocaine 2% mixed with ropivacaine 0.5% one-to-one. After that 22 gauge 3 and 1/2 inch needle was driven to the right joint and sequentially in the left joint in tunnel vision fashion. When needle entered the joint capsule injection of the contrast was performed demonstrating intra-articular and minimally periarticular spread of the contrast. After that 4 cc. of ropivacaine 0.5% mixed with kenalog 40mg was injected into the each joint. The needles were removed and bandaids were applied. the patient tolerated procedure well. Plan as above Orders: Orders FL guidance in treatment room Today M53.3 - Sacrococcygeal disorders, not elsewhere classified Coding Level of Care Code Procedure Only Diagnoses Radiculopathy M54.10 Lumbar spondylosis M47.816 Post laminectomy syndrome M96.1 Myofascial low back pain M54.50 Sacroiliac joint dysfunction of both sides M53.3
[2024-09-14 09:32] VITALS: BP 146/74; PULSE 74; RESP 16; O2SAT 100
== END 2024-09-14 09:33 | disposition home or self-care (01) ==
LOC: HO.PMCPRC 08:13
PROVIDERS: PCP Internal Medicine; Visit Provider Anesthesiology
DX: M54.10 Radiculopathy, site unspecified (principal); M47.816 Spondylosis without myelopathy or radiculopathy, lumbar region; M96.1 Postlaminectomy syndrome, not elsewhere classified; M54.50 Low back pain, unspecified; M53.3 Sacrococcygeal disorders, not elsewhere classified
CPT/HCPCS: 27096